=== PATIENT | male | born 1945 | race Caucasian/White ===

== ENCOUNTER 2017-09-29 13:44 | Emergency (ER) | payer MEDICARE, OTHER ==
[2017-09-29] MEDS: HYDROCODONE/APAP (5/325) TAB PO (16:07)
== END 2017-09-29 18:04 | disposition home or self-care (01) ==
LOC: FTE 13:44 → E/R 18:04
DX: S20.212A Contusion of left front wall of thorax, initial encounter (principal); I10 Essential (primary) hypertension; I25.10 Atherosclerotic heart disease of native coronary artery without angina pectoris; E11.9 Type 2 diabetes mellitus without complications; X58.XXXA Exposure to other specified factors, initial encounter; Y92.9 Unspecified place or not applicable; Z79.4 Long term (current) use of insulin; Z95.1 Presence of aortocoronary bypass graft; Z79.82 Long term (current) use of aspirin
CPT/HCPCS: 71046; 99284-25

== ENCOUNTER 2018-06-30 19:45 | Observation (INO) | payer MEDICARE, OTHER ==
[2018-07-01] MEDS: morphine 4 MG/ML VIAL IV (01:04)
[2018-07-01] MEDS: ONDANSETRON 4 MG INJ IV (01:04)
[2018-07-01 01:14] LABS: ADD MAN DIFF? NO
[2018-07-01 01:16] LABS: BASOPHILS % 0.4 % (0.0-2.0); EOSINOPHILS # 0.2 10^3/ul (0.0-0.5); EOSINOPHILS % 2.3 % (0.0-7.0); HEMATOCRIT 42.2 % (42.0-52.0); HEMOGLOBIN 14.3 g/dl (14.0-18.0); LYMPHOCYTES # 2.9 10^3/ul (0.8-2.9); MEAN CORPUSCULAR HEMOGLOBIN 30.6 pg (29.0-33.0); MEAN CORPUSCULAR HGB CONC 33.9 g/dl (32.0-37.0); MEAN CORPUSCULAR VOLUME 90.2 fl (82.0-101.0); MEAN PLATELET VOLUME 10.3 fl (7.4-10.4); MONOCYTE # 0.7 10^3/ul (0.3-0.9); MONOCYTES % 9.3 % (0.0-11.0); NEUTROPHILS % 50.6 % (39.0-77.0); PLATELET COUNT 219 10^3/UL (140-415); RED BLOOD COUNT 4.68 10^6/ul (4.70-6.10); RED CELL DISTRIBUTION WIDTH 12.7 % (11.5-14.5)
[2018-07-01 01:16] LABS: WHITE BLOOD COUNT 7.9 10^3/ul (4.8-10.8)
[2018-07-01 01:33] LABS: ANION GAP 12 (5-13); BLOOD UREA NITROGEN 14 mg/dl (7-20); CALCIUM 9.7 mg/dl (8.4-10.2); CARBON DIOXIDE 23 mmol/L (21-31); CHLORIDE 107 mmol/L (97-110); CREATININE 0.95 mg/dl (0.61-1.24); GLUCOSE 178 mg/dl (70-220); POTASSIUM 3.5 mmol/L (3.5-5.1); SODIUM 142 mmol/L (135-144)
[2018-07-01 01:45] LABS: TROPONIN-I < 0.012 ng/ml (0.000-0.120)
[2018-07-01] MEDS ORDERED: hydrALAzine 20 MG INJ IV (03:00)
[2018-07-01] MEDS ORDERED: NACL 0.9% 3 ML SYG IV (03:00)
[2018-07-01] MEDS ORDERED: GLUCAGON 1 MG INJ IM (03:00)
[2018-07-01] MEDS ORDERED: DOCUSATE SODIUM 100 MG CAP PO (03:00)
[2018-07-01] MEDS ORDERED: GLUCOSE GEL 15 GRAM TUBE BUCCAL (03:00)
[2018-07-01] MEDS ORDERED: ACETAMINOPHEN 325 MG TAB PO (03:00)
[2018-07-01] MEDS ORDERED: DEXTROSE 50% 50 ML SYRINGE IV ×2 (03:00)
[2018-07-01] MEDS ORDERED: GLUCOSE GEL 15 GRAM TUBE PO ×2 (03:00)
[2018-07-01] MEDS ORDERED: ONDANSETRON 4 MG INJ IV (03:00)
[2018-07-01] MEDS ORDERED: BISACODYL (EC) 5 MG TAB PO (03:00)
[2018-07-01] MEDS: PANTOPRAZOLE (EC) 40 MG TAB PO (06:36)
[2018-07-01] MEDS: INSULIN ASPART [NOVOLOG] 3 ML PEN SC ×4 (07:55→21:36)
[2018-07-01] MEDS: FERROUS SULFATE (EC) 325 MG TAB PO ×2 (09:54→21:26)
[2018-07-01] MEDS: BENAZEPRIL 5 MG TAB PO (09:54)
[2018-07-01] MEDS: ENOXAPARIN 40 MG/0.4 ML SYG SC (10:00)
[2018-07-01 10:22] LABS: CREATINE KINASE 94 IU/L (23-200)
[2018-07-01 10:34] LABS: CK INDEX 0.8; CK-MB 0.74 ng/ml (0.0-2.4); TROPONIN-I < 0.012 ng/ml (0.000-0.120)
[2018-07-01] MEDS: ATORVASTATIN 20 MG TAB PO (21:26)
[2018-07-01] MEDS: INSULIN GLARGINE [LANTus] (100 UNITS/ML) SYG SC (21:37)
[2018-07-02] MEDS: ACCU-CHEK XX (02:26)
[2018-07-02] MEDS: PANTOPRAZOLE (EC) 40 MG TAB PO (05:42)
[2018-07-02 07:25] LABS: ADD MAN DIFF? NO
[2018-07-02 07:29] LABS: BASOPHILS % 0.6 % (0.0-2.0); EOSINOPHILS # 0.2 10^3/ul (0.0-0.5); EOSINOPHILS % 3.2 % (0.0-7.0); HEMATOCRIT 41.3 % (42.0-52.0); HEMOGLOBIN 14.2 g/dl (14.0-18.0); LYMPHOCYTES # 2.4 10^3/ul (0.8-2.9); LYMPHOCYTES % 35.5 % (15.0-51.0); MEAN CORPUSCULAR HEMOGLOBIN 30.4 pg (29.0-33.0); MEAN CORPUSCULAR HGB CONC 34.4 g/dl (32.0-37.0); MEAN CORPUSCULAR VOLUME 88.4 fl (82.0-101.0); MEAN PLATELET VOLUME 9.9 fl (7.4-10.4); MONOCYTE # 0.7 10^3/ul (0.3-0.9); MONOCYTES % 9.9 % (0.0-11.0); NEUTROPHIL # 3.4 10^3/ul (1.6-7.5); NEUTROPHILS % 50.6 % (39.0-77.0); PLATELET COUNT 214 10^3/UL (140-415); RED BLOOD COUNT 4.67 10^6/ul (4.70-6.10); RED CELL DISTRIBUTION WIDTH 12.5 % (11.5-14.5)
[2018-07-02 07:29] LABS: WHITE BLOOD COUNT 6.6 10^3/ul (4.8-10.8)
[2018-07-02 07:44] LABS: ALANINE AMINOTRANSFERASE 19 IU/L (13-69); ALBUMIN 3.7 g/dl (3.3-4.9); ALBUMIN/GLOBULIN RATIO 1.32; ALKALINE PHOSPHATASE 82 IU/L (42-121); ANION GAP 10 (5-13); ASPARTATE AMINO TRANSFERASE 18 IU/L (15-46); BILIRUBIN,INDIRECT 0.3 mg/dl (0-1.1); BILIRUBIN,TOTAL 0.3 mg/dl (0.2-1.3); BLOOD UREA NITROGEN 18 mg/dl (7-20); CALCIUM 9.2 mg/dl (8.4-10.2); CARBON DIOXIDE 22 mmol/L (21-31); CHLORIDE 107 mmol/L (97-110); CHOL/HDL RATIO 3.1 RATIO; CHOLESTEROL 78 mg/dl (100-200); CREATININE 0.91 mg/dl (0.61-1.24); GLUCOSE 234 mg/dl (70-220); HDL CHOLESTEROL 25 mg/dl (31-75); LDL CHOLESTEROL,CALCULATED 26 mg/dl; MAGNESIUM 2.1 mg/dl (1.7-2.5); SODIUM 139 mmol/L (135-144); TOTAL PROTEIN 6.5 g/dl (6.1-8.1); TRIGLYCERIDES 135 mg/dl (0-149)
[2018-07-02 08:14] LABS: THYROID STIMULATING HORMONE 0.567 MIU/L (0.465-4.680)
[2018-07-02] MEDS: FERROUS SULFATE (EC) 325 MG TAB PO (08:16)
[2018-07-02] MEDS: BENAZEPRIL 5 MG TAB PO (08:17)
[2018-07-02] MEDS: INSULIN ASPART [NOVOLOG] 3 ML PEN SC (08:17)
[2018-07-02 08:18] LABS: HEMOGLOBIN A1C 10.4 % (0-5.9)
[2018-07-02] MEDS: ENOXAPARIN 40 MG/0.4 ML SYG SC (08:18)
== END 2018-07-02 12:24 | disposition home or self-care (01) ==
LOC: E/R 19:45 → TEL 07-01 02:45
DX: M54.2 Cervicalgia (principal); R51 Headache; R00.1 Bradycardia, unspecified; I25.10 Atherosclerotic heart disease of native coronary artery without angina pectoris; Z95.1 Presence of aortocoronary bypass graft; Z95.5 Presence of coronary angioplasty implant and graft; J44.9 Chronic obstructive pulmonary disease, unspecified; I10 Essential (primary) hypertension; E78.5 Hyperlipidemia, unspecified; I73.9 Peripheral vascular disease, unspecified; F17.210 Nicotine dependence, cigarettes, uncomplicated; F32.9 Major depressive disorder, single episode, unspecified; N40.0 Benign prostatic hyperplasia without lower urinary tract symptoms; E11.9 Type 2 diabetes mellitus without complications; Z79.82 Long term (current) use of aspirin; W10.9XXA Fall (on) (from) unspecified stairs and steps, initial encounter
CPT/HCPCS: 36415; 70450; 71045; 72125; 72128; 72131; 80048; 80053; 80061; 82550; 82553; 82962; 83036; 83735; 84443; 84484; 85025; 93005; 93306; 93922; 93970; 96374; 96375; 97161; 99285-25; G0378